=== PATIENT | female | born 1975 | race Hispanic/Latino ===

== ENCOUNTER → 2024-09-29 | Outpatient (CLI) | payer OTHER ==
[2024-09-29 12:30] LABS: CREATININE 0.9 mg/dL (0.5-1.0); POTASSIUM 5.2 mmol/L (3.5-5.1)
== END | disposition home or self-care (01) ==
LOC: LAB 09:50
PROVIDERS: ATTEND Internal Medicine Cardiovascular Disease
DX: I73.9 Peripheral vascular disease, unspecified (principal)
CPT/HCPCS: 36415; 80048

== ENCOUNTER → 2024-10-03 | Outpatient (CLI) | payer OTHER ==
[2024-10-03 17:16] LABS: CREATININE 0.9 mg/dL (0.5-1.0); POTASSIUM 4.2 mmol/L (3.5-5.1)
== END | disposition home or self-care (01) ==
LOC: LAB 11:48
PROVIDERS: ATTEND Internal Medicine Cardiovascular Disease
DX: I73.9 Peripheral vascular disease, unspecified (principal)
CPT/HCPCS: 36415; 80048

== ENCOUNTER → 2024-10-10 | Outpatient (CLI) | payer OTHER ==
[~2024-10-10] MED LIST: IOHEXOL-350 75 ML VIAL IV ONE
--- NOTE | 2024-10-10 14:21 | HMCIMG ---
CT ANGIO ABD AORTA W RUNOFF REASON: PVD COMPARISON: None TECHNIQUE: Axial images are obtained from lung bases through the feet before and during bolus IV contrast, 150 cc Omnipaque 350. 2-D and 3-D reconstruction images were performed. FINDINGS: There is normal appearance of the abdominal aorta. Renal and mesenteric artery origins are widely patent. Iliac vessels appear unremarkable as well. Right leg runoff shows occlusion of the superficial femoral artery at its origin. There are profunda femoris collaterals present. There is no reconstitution of the popliteal artery. There is faint to the distal reconstitution of the anterior and posterior tibial arteries as well as the peroneal artery. There is a small amount of flow visible and the dorsalis pedis artery as well as the posterior tibial artery at the foot. Left leg runoff also shows occlusion of the superficial femoral artery at its origin. There is reconstitution of the distal popliteal artery. There is three-vessel runoff faintly visible to the ankle. Posterior tibial is visible to the foot. Dorsalis pedis is not visible in the foot. There are marked fatty infiltration of the liver. There are no focal liver lesions. Gallbladder is absent. Pancreas and kidneys appear normal. Bowel loops are unremarkable. Pelvic soft tissues appear normal. Anterior abdominal wall appears intact. IMPRESSION: 1. Near normal appearing aortoiliac runoff. 2. Both common femoral arteries are patent. 3. Right leg runoff shows occlusion of the superficial femoral artery at its origin, the SFA and popliteal are occluded, there is muscular continuous collateral reconstitution of the trifurcation vessels, there is two-vessel runoff to the ankle and faint to posterior tibial and dorsalis pedis runoff to the foot. 4. Left leg runoff also shows occlusion of the superficial femoral artery as well as the proximal popliteal artery, distal popliteal artery reconstitutes, there is three-vessel runoff to the ankle but only the posterior tibial artery is visible in the foot. 4. Severe fatty infiltration of the liver, otherwise unremarkable nonvascular findings.
== END | disposition home or self-care (01) ==
LOC: RAH 11:07
PROVIDERS: ATTEND Internal Medicine Cardiovascular Disease
DX: I70.202 Unspecified atherosclerosis of native arteries of extremities, left leg (principal); I70.201 Unspecified atherosclerosis of native arteries of extremities, right leg; K76.0 Fatty (change of) liver, not elsewhere classified
CPT/HCPCS: 75635; Q9967